=== PATIENT | male | born 1955 | race Caucasian/White ===

== ENCOUNTER 2016-10-21 12:05 | Emergency (ER) | payer OTHER, BC ==
[2016-10-21] MEDS ORDERED: Diphtheria,Pertussis(Acell),Tetanus Vaccine 0.5 ML Syringe IM ONE (12:12)
--- NOTE | 2016-10-21 12:23 | EDM.PDOC ---
ED HPI GENERAL MEDICAL PROBLEM - General Chief Complaint: General Stated Complaint: FALL OFF LADDER Time Seen by Provider: 10/21/16 12:20 Source of Information: Reports: Patient History Limitations: Reports: No Limitations - History of Present Illness INITIAL COMMENTS - FREE TEXT/NARRATIVE: History of present illness: 61-year-old male presents with acute trauma to back of head. Patient had a slip and fall from a ladder while at work. Patient sustained an abrasion to the back of his left calf and a small skin tear to his right elbow but he was concerned for the blow to his head with subsequent hematoma and some amount of bleeding. Patient denies loss of consciousness, nausea, or vomiting. Review of systems: As per history of present illness and below otherwise all systems reviewed and negative. Past medical history: As per history of present illness and as reviewed below otherwise noncontributory. Surgical history: As per history of present illness and as reviewed below otherwise noncontributory. Social history: No reported history of drug or alcohol abuse. Family history: As per history of present illness and as reviewed below otherwise noncontributory. Physical exam: HEENT: Macerated area to back of head with a approx 1.5 cm laceration,small hematoma at occipit, pupils reactive, negative for conjunctival pallor or scleral icterus, mucous membranes moist, throat clear, neck supple, nontender, trachea midline. Lungs: Clear to auscultation, breath sounds equal bilaterally, chest nontender. Heart: S1S2, regular, negative for clicks, rubs, or JVD. Abdomen: Soft, nondistended, nontender. Negative for masses or hepatosplenomegaly. Negative for costovertebral tenderness. Pelvis: Stable nontender. Genitourinary: Deferred. Rectal: Deferred. Extremities: Atraumatic, negative for cords or calf pain. Neurovascular unremarkable. Neuro: Awake, alert, oriented. Cranial nerves II through XII unremarkable. Cerebellum unremarkable. Motor and sensory unremarkable throughout. Exam nonfocal. Skin: Abraded area to calf of left leg as well as small skin tear of right forearm Scalp cleaned well with 3 lor applied patient waived lidocaine secondary to limited amount of lor. Diagnostics: [CT of head] Therapeutics: [] Impression: [Contusion, 1.5 cm laceration.] Plan: [3 lor applied, follow-up with primary care ] Definitive disposition and diagnosis as appropriate pending reevaluation and review of above. Occipital Head Pain Score (Numeric/FACES): 5 - Related Data Allergies Allergy/AdvReac Type Severity Reaction Status Date / Time No Known Allergies Allergy Verified 10/21/16 12:06 Home Meds: Home Meds Acetaminophen/oxyCODONE [Percocet 325-5 MG] 1 - 2 tab PO Q4H PRN #60 tablet [Rx] Aspirin 325 mg PO DAILY #42 tablet 11/01/14 [Rx] Docusate Sodium [Colace] 100 mg PO BID PRN #60 cap 11/01/14 [Rx] Past Medical History - Past Health History Medical/Surgical History: Denies Medical/Surgical History Cardiovascular History: Reports: None Respiratory History: Reports: None Gastrointestinal History: Reports: None Genitourinary History: Reports: None Musculoskeletal History: Reports: None Neurological History: Reports: None Psychiatric History: Reports: None Endocrine/Metabolic History: Reports: None Dermatologic History: Reports: None - Past Surgical History HEENT Surgical History: Reports: None Cardiovascular Surgical History: Reports: None Respiratory Surgical History: Reports: None GI Surgical History: Reports: Colon Male Surgical History: Reports: None Social & Family History - Tobacco Use Smoking Status *Q: Former Smoker Years of Tobacco use: 30 Used Tobacco, but Quit: Yes Month Tobacco Last Used: 72 Second Hand Smoke Exposure: No - Alcohol Use Days Per Week of Alcohol Use: 1 Number of Drinks Per Day: 1 Total Drinks Per Week: 1 - Recreational Drug Use Recreational Drug Use: No ED ROS GENERAL - Review of Systems Review Of Systems: See Below (See history of present illness) ED EXAM, GENERAL - Physical Exam Exam: See Below (See history of present illness) Course - Vital Signs Last Recorded V/S: Last Vital Signs Temp 36.4 C 10/21/16 12:07 Pulse 94 10/21/16 12:07 Resp 20 10/21/16 12:07 BP 141/81 H 10/21/16 12:07 Pulse Ox 99 10/21/16 12:07 - Orders/Labs/Meds Orders: Active Orders 24 hr Category Date Time Status Vaccines to be Administered [RC] PER UNIT ROUTINE Care 10/21/16 12:12 Active Head wo Cont [CT] Stat Exams 10/21/16 12:22 Taken Meds: Medications Discontinued Medications Generic Name Dose Route Start Last Admin Trade Name Maria Eugenia PRN Reason Stop Dose Admin Bacitracin 2 dose 10/21/16 12:27 Bacitracin Oint 1 Gm TOP 10/21/16 12:28 ONETIME ONE Diphtheria/Tetanus/Acell Pertussis 0.5 ml 10/21/16 12:12 Adacel IM 10/21/16 12:13 .ONCE ONE Departure - Departure Time of Disposition: 13:20 Disposition: Home, Self-Care 01 Condition: Good Clinical Impression: Contusion, Laceration - Discharge Information Referrals: PCP,None [Primary Care Provider] - Forms: ED Department Discharge Additional Instructions: The following information is given to patients seen in the emergency department who are being discharged to home. This information is to outline your options for follow-up care. We provide all patients seen in our emergency department with a follow-up referral. The need for follow-up, as well as the timing and circumstances, are variable depending upon the specifics of your emergency department visit. If you don't have a primary care physician on staff, we will provide you with a referral. We always advise you to contact your personal physician following an emergency department visit to inform them of the circumstance of the visit and for follow-up with them and/or the need for any referrals to a consulting specialist. The emergency department will also refer you to a specialist when appropriate. This referral assures that you have the opportunity for follow-up care with a specialist. All of these measure are taken in an effort to provide you with optimal care, which includes your follow-up. Under all circumstances we always encourage you to contact your private physician who remains a resource for coordinating your care. When calling for follow-up care, please make the office aware that this follow-up is from your recent emergency room visit. If for any reason you are refused follow-up, please contact the [facility] Emergency Department at and asked to speak to the emergency department charge nurse. Follow-up with PCP 1-2 days Return to ED as needed as discussed [facility] [address] [place] [id number] - My Orders Last 24 Hours: My Active Orders 10/21/16 12:22 Head wo Cont [CT] Stat - Assessment/Plan Last 24 Hours: My Active Orders 10/21/16 12:22 Head wo Cont [CT] Stat
[2016-10-21] MEDS ORDERED: Bacitracin Oint 1 GM U/D Packet TOP ONE (12:27)
[2016-10-21 16:10] VITALS: BP 139/78
--- NOTE | 2016-10-23 13:38 | CT ---
EXAM DATE: 10/21/16 PATIENT'S AGE: 61 Patient: MAKENZIE ESQUEDA Facility: [place], [place] Site . Site : 1955 Study: CT Head [id number] 1:05:26 PM Ordering Physician: Doctor Noel Final Report: INDICATION: fell from ladder CT HEAD WITHOUT CONTRAST TECHNIQUE: Multiple axial CT images were performed through the head without intravenous contrast administration. COMPARISON: No previous studies are currently available for comparison. FINDINGS: No acute intracranial hemorrhage is identified. No extra-axial collections are evident and there is no mass effect or midline shift. Ventricles are normal in size and configuration. Brain parenchyma appears normal with unremarkable yoon-white differentiation. Osseous structures are within normal limits and no fractures are seen. Included portions of the paranasal sinuses and mastoid air cells are normally aerated. IMPRESSION: Normal non-contrast head CT. LUIS A MORENO MD [employer] Dictated by: Sameer Moreno MD @ 10/21/2016 13:13:48 (Electronic Signature) Report Signed by Proxy. [facility]
== END 2016-10-21 13:47 | disposition home or self-care (01) ==
LOC: MW.ED 12:05
DX: S01.01XA Laceration without foreign body of scalp, initial encounter (principal); S51.811A Laceration without foreign body of right forearm, initial encounter; S80.812A Abrasion, left lower leg, initial encounter; Z87.891 Personal history of nicotine dependence; W11.XXXA Fall on and from ladder, initial encounter
CPT/HCPCS: 12001; 70450; 70450-26; 90471; 90715; 99283; 99283-25

== ENCOUNTER 2017-01-02 18:03 | Emergency (ER) | payer BC, OTHER ==
[2017-01-02] MEDS ORDERED: Benzocaine 20% Topical Spray UD MUCMEM ONE (18:14)
[2017-01-02] MEDS ORDERED: Lidocaine 2% Viscous Solution 15 ML Cup PO ONE (18:14)
[2017-01-02] MEDS ORDERED: Ketorolac 60 MG/2 ML SDV IM ONE (18:14)
--- NOTE | 2017-01-02 18:14 | EDM.PDOC ---
ED HPI GENERAL MEDICAL PROBLEM - General Chief Complaint: General Stated Complaint: TOOTH PAIN Time Seen by Provider: 01/02/17 18:12 Source of Information: Reports: Patient History Limitations: Reports: No Limitations - History of Present Illness INITIAL COMMENTS - FREE TEXT/NARRATIVE: HISTORY AND PHYSICAL: []61-year-old male presents with tooth pain #20 History of Present Illness: []Patient was at the dentist had cavities filled 2 and half hours ago when the Novocain wore off he presents here with pain Review of Systems: As per history of present illness and below otherwise all systems reviewed and negative. Past medical history: As per history of present illness and as reviewed below otherwise noncontributory. Surgical history: As per history of present illness and as reviewed below otherwise noncontributory. Social history: No reported history of drug or alcohol abuse. Family history: As per history of present illness and as reviewed below otherwise noncontributory. Physical exam: Alert gentleman who does look to be in pain HEENT: Atraumatic, normocehpalic, pupils reactive, negative for conjunctival pallor or scleral icterus, mucous membranes moist, throat clear, neck supple, nontender, trachea midline. Lungs: Clear to auscultation, breath sounds equal bilaterally, chest non tender. Heart: S1S2, regular, negative for clicks, rubs, or JVD. Abdomen: Soft, nondistended, nontender. Negative for masses or hepatossplenmegaly. Negative for costovertebral tenderness. Pelvis: Stable nontender. Genitourinary: Deferred. Rectal: Deferred Extremities: Atraumatic, negative for cords or calf pain. Neurovascular unremarkable. Neuro: Awake, alert, oriented. Cranial nerves II through XII unremarkable. Cerebellum unremarkable. Motor and sensory unremarkable throughout. Exam nonfocal. Diagnostics: [] Therapeutics: [Toradol 60 IM, dental balls ] Impression: [Dental pain] Plan: []Home Follow up with your dentist tomorrow Definitive disposition and diagnosis as appropriate pending reevaluation and review of above. Onset: Today, Sudden Location: Reports: Face - Related Data Allergies Allergy/AdvReac Type Severity Reaction Status Date / Time No Known Allergies Allergy Verified 01/02/17 18:13 Home Meds: Home Meds Acetaminophen/oxyCODONE [Percocet 325-5 MG] 1 - 2 tab PO Q4H PRN #60 tablet [Rx] Past Medical History - Past Health History Medical/Surgical History: Denies Medical/Surgical History Cardiovascular History: Reports: None Respiratory History: Reports: None Gastrointestinal History: Reports: None Genitourinary History: Reports: None Musculoskeletal History: Reports: None Neurological History: Reports: None Psychiatric History: Reports: None Endocrine/Metabolic History: Reports: None Dermatologic History: Reports: None - Past Surgical History HEENT Surgical History: Reports: None Cardiovascular Surgical History: Reports: None Respiratory Surgical History: Reports: None GI Surgical History: Reports: Colon Male Surgical History: Reports: None Social & Family History - Tobacco Use Smoking Status *Q: Former Smoker Years of Tobacco use: 30 Used Tobacco, but Quit: Yes Month Tobacco Last Used: 73 Second Hand Smoke Exposure: No - Alcohol Use Days Per Week of Alcohol Use: 1 Number of Drinks Per Day: 1 Total Drinks Per Week: 1 - Recreational Drug Use Recreational Drug Use: No ED ROS GENERAL - Review of Systems Review Of Systems: ROS reveals no pertinent complaints other than HPI. ED EXAM, GENERAL - Physical Exam Exam: See Below (See dictation) Course - Vital Signs Last Recorded V/S: Last Vital Signs Temp 36.3 C 01/02/17 18:09 Pulse 81 01/02/17 18:09 Resp 22 H 01/02/17 18:09 BP 163/89 H 01/02/17 18:09 Pulse Ox 98 01/02/17 18:09 - Orders/Labs/Meds Orders: Active Orders 24 hr Category Date Time Status Benzocaine [Hurricaine One 20%] Med 01/02/17 18:14 Once 2 each MUCMEM ONETIME ONE Ketorolac [Toradol] Med 01/02/17 18:14 Once 60 mg IM ONETIME ONE Lidocaine 2% [Xylocaine 2% Viscous] Med 01/02/17 18:14 Once 15 ml PO ONETIME ONE Medication Orders Benzocaine (Hurricaine One 20%) 2 each MUCMEM ONETIME ONE Stop: 01/02/17 18:15 Lidocaine HCl (Xylocaine 2% Viscous) 15 ml PO ONETIME ONE Stop: 01/02/17 18:15 Meds: Medications Generic Name Dose Route Start Last Admin Trade Name Freq PRN Reason Stop Dose Admin Benzocaine 2 each 01/02/17 18:14 Hurricaine One 20% MUCMEM 01/02/17 18:15 ONETIME ONE Lidocaine HCl 15 ml 01/02/17 18:14 Xylocaine 2% Viscous PO 01/02/17 18:15 ONETIME ONE Departure - Departure Time of Disposition: 18:14 Disposition: Home, Self-Care 01 Condition: Good Clinical Impression: Pain, dental - Discharge Information Referrals: Jose Manuel Camara MD [Primary Care Provider] - Forms: ED Department Discharge Additional Instructions: The following information is given to patients seen in the emergency department who are being discharged to home. This information is to outline your options for follow-up care. We provide all patients seen in our emergency department with a follow-up referral. The need for follow-up, as well as the timing and circumstances, are variable depending upon the specifics of your emergency department visit. If you don't have a primary care physician on staff, we will provide you with a referral. We always advise you to contact your personal physician following an emergency department visit to inform them of the circumstance of the visit and for follow-up with them and/or the need for any referrals to a consulting specialist. The emergency department will also refer you to a specialist when appropriate. This referral assures that you have the opportunity for followup care with a specialist. All of these measure are taken in an effort to provide you with optimal care, which includes your followup. Under all circumstances we always encourage you to contact your private physician who remains a resource for coordinating your care. When calling for followup care, please make the office aware that this follow-up is from your recent emergency room visit. If for any reason you are refused follow-up, please contact the [facility] emergency department at and asked to speak to the emergency department charge nurse. This follow-up with your primary dentist tomorrow - My Orders Last 24 Hours: My Active Orders 01/02/17 18:14 Benzocaine [Hurricaine One 20%] 2 each MUCMEM ONETIME ONE Ketorolac [Toradol] 60 mg IM ONETIME ONE Lidocaine 2% [Xylocaine 2% Viscous] 15 ml PO ONETIME ONE - Assessment/Plan Last 24 Hours: My Active Orders 01/02/17 18:14 Benzocaine [Hurricaine One 20%] 2 each MUCMEM ONETIME ONE Ketorolac [Toradol] 60 mg IM ONETIME ONE Lidocaine 2% [Xylocaine 2% Viscous] 15 ml PO ONETIME ONE
[2017-01-02 18:57] VITALS: BP 127/79
== END 2017-01-02 18:53 | disposition home or self-care (01) ==
LOC: MW.ED 18:03
DX: K08.89 Other specified disorders of teeth and supporting structures (principal); Z87.891 Personal history of nicotine dependence
CPT/HCPCS: 96372; 99282; A9270; J1885; 99283

== ENCOUNTER 2017-02-16 01:18 | Emergency (ER) | payer BC ==
--- NOTE | 2017-02-16 01:25 | EDM.PDOC ---
ED HPI GENERAL MEDICAL PROBLEM - General Chief Complaint: Upper Extremity Injury/Pain Stated Complaint: DISLOCATE RT SHOULDER Time Seen by Provider: 02/16/17 01:25 Source of Information: Reports: Patient - History of Present Illness INITIAL COMMENTS - FREE TEXT/NARRATIVE: HISTORY AND PHYSICAL: History of present illness: [Patient presents with complaint of shoulder dislocation He was fishing tonight lifting the middle directed into the back of a pickup and feels that her shoulder dislocated he had sharp 8 out of 10 pain with this movement no other injury no fever nausea vomiting chills sweats no chest pain shortness breath headache dizziness palpitation about a urine symptoms ] Review of systems: As per history of present illness and below otherwise all systems reviewed and negative. Past medical history: As per history of present illness and as reviewed below otherwise noncontributory. Surgical history: As per history of present illness and as reviewed below otherwise noncontributory. Social history: No reported history of drug or alcohol abuse. Family history: As per history of present illness and as reviewed below otherwise noncontributory. Physical exam: HEENT: Atraumatic, normocephalic, pupils reactive, negative for conjunctival pallor or scleral icterus, mucous membranes moist, throat clear, neck supple, nontender, trachea midline. Lungs: Clear to auscultation, breath sounds equal bilaterally, chest nontender. Heart: S1S2, regular, negative for clicks, rubs, or JVD. Abdomen: Soft, nondistended, nontender. Negative for masses or hepatosplenomegaly. Negative for costovertebral tenderness. Pelvis: Stable nontender. Genitourinary: Deferred. Rectal: Deferred. Extremities: Atraumatic, negative for cords or calf pain. Neurovascular unremarkable. Neuro: Awake, alert, oriented. Cranial nerves II through XII unremarkable. Cerebellum unremarkable. Motor and sensory unremarkable throughout. Exam nonfocal. Right shoulder no pain with movement of the neck elbow and wrist unaffected limited shoulder exam due to pain very limited movement with passive motion due to pain, tender over ac joint, suspicious for rotator cuff injury there is very minimal passive forward extension produces pain. Entire limb is neurovascularly intact Diagnostics: [Right shoulder complete ] Therapeutics: [Rest ice ibuprofen [place] Sling for comfort Follow-up with orthopedist ] Impression: [Right shoulder pain] Limited exam due to pain Definitive disposition and diagnosis as appropriate pending reevaluation and review of above. Right Shoulder Pain Score (Numeric/FACES): 10 - Related Data Allergies Allergy/AdvReac Type Severity Reaction Status Date / Time No Known Allergies Allergy Verified 02/16/17 01:29 Home Meds: Home Meds . [No Known Home Meds] 02/16/17 [History] Past Medical History - Past Health History Medical/Surgical History: Denies Medical/Surgical History Cardiovascular History: Reports: None Respiratory History: Reports: None Gastrointestinal History: Reports: None Genitourinary History: Reports: None Musculoskeletal History: Reports: None Neurological History: Reports: None Psychiatric History: Reports: None Endocrine/Metabolic History: Reports: None Dermatologic History: Reports: None - Past Surgical History HEENT Surgical History: Reports: None Cardiovascular Surgical History: Reports: None Respiratory Surgical History: Reports: None GI Surgical History: Reports: Colon Male Surgical History: Reports: None Social & Family History - Family History Family Medical History: Noncontributory - Tobacco Use Smoking Status *Q: Former Smoker Years of Tobacco use: 30 Used Tobacco, but Quit: Yes Month Tobacco Last Used: 73 Second Hand Smoke Exposure: No - Caffeine Use Caffeine Use: Reports: Coffee - Alcohol Use Days Per Week of Alcohol Use: 1 Number of Drinks Per Day: 1 Total Drinks Per Week: 1 - Recreational Drug Use Recreational Drug Use: No Review of Systems - Review of Systems Review Of Systems: See Below ED EXAM, GENERAL - Physical Exam Exam: See Below Course - Vital Signs Last Recorded V/S: Last Vital Signs Temp 37.3 C 02/16/17 01:25 Pulse 89 02/16/17 01:25 Resp 19 02/16/17 01:25 BP 141/74 H 02/16/17 01:25 Pulse Ox 94 L 02/16/17 01:25 - Orders/Labs/Meds Orders: Active Orders 24 hr Category Date Time Status Shoulder Comp Rt [CR] Stat Exams 02/16/17 01:24 Taken Departure - Departure Time of Disposition: 02:07 Disposition: Home, Self-Care 01 Condition: Good Clinical Impression: Shoulder pain - Discharge Information Referrals: Jose Manuel Camara MD [Primary Care Provider] - Forms: ED Department Discharge Additional Instructions: Rest Ice 20 minute intervals 3 times daily 7-10 days Ibuprofen 400 mg 3 times daily 7-10 days Medication as prescribed Follow-up with orthopedist, call phone number below for appropriate appointment scheduling [facility] [address], [address] [place] [address] my orthopedic The following information is given to patients seen in the emergency department who are being discharged to home. This information is to outline your options for follow-up care. We provide all patients seen in our emergency department with a follow-up referral. The need for follow-up, as well as the timing and circumstances, are variable depending upon the specifics of your emergency department visit. If you don't have a primary care physician on staff, we will provide you with a referral. We always advise you to contact your personal physician following an emergency department visit to inform them of the circumstance of the visit and for follow-up with them and/or the need for any referrals to a consulting specialist. The emergency department will also refer you to a specialist when appropriate. This referral assures that you have the opportunity for follow-up care with a specialist. All of these measure are taken in an effort to provide you with optimal care, which includes your follow-up. Under all circumstances we always encourage you to contact your private physician who remains a resource for coordinating your care. When calling for follow-up care, please make the office aware that this follow-up is from your recent emergency room visit. If for any reason you are refused follow-up, please contact the [facility] emergency department at and asked to speak to the emergency department charge nurse. - My Orders Last 24 Hours: My Active Orders 02/16/17 01:24 Shoulder Comp Rt [CR] Stat - Assessment/Plan Last 24 Hours: My Active Orders 02/16/17 01:24 Shoulder Comp Rt [CR] Stat
[2017-02-16 01:28] VITALS: BP 141/74
--- NOTE | 2017-02-17 14:45 | CR ---
EXAM DATE: 02/16/17 PATIENT'S AGE: 61 Patient: MAKENZIE ESQUEDA Facility: [place], [place] Site . Site : 1955 Study: XRay Shoulder Right [id number]/[id number] 1:54:47 AM Ordering Physician: Doctor Noel Final Report: INDICATION: HYPER EXTENDED SHOULDER TODAY PAIN WORSENING INTO THE EVENING TECHNIQUE: Three views of the right shoulder COMPARISON: None FINDINGS: Bones: No fractures or bone lesions. Joint spaces: Unremarkable. Soft tissues: Unremarkable. IMPRESSION: No acute bony abnormality Dictated by Hipolito Pedersen MD @ 02/16/2017 1:55:40 AM Dictated by: Hipolito Pedersen MD @ 02/16/2017 01:56:07 (Electronic Signature) Report Signed by Proxy. [facility]ITAL[facility]up[facility]
== END 2017-02-16 02:20 | disposition home or self-care (01) ==
LOC: MW.ED 01:18
DX: M25.511 Pain in right shoulder (principal); Z87.891 Personal history of nicotine dependence; X50.1XXA Overexertion from prolonged static or awkward postures, initial encounter
CPT/HCPCS: 73030-26-RT; 73030-RT; 99283

== ENCOUNTER 2017-03-24 20:08 | Emergency (ER) | payer BC ==
[2017-03-24 20:24] VITALS: BP 117/70
--- NOTE | 2017-03-24 20:44 | EDM.PDOC ---
ED HPI GENERAL MEDICAL PROBLEM - General Chief Complaint: ENT Problem Stated Complaint: PT HAS SORE THROAT Time Seen by Provider: 03/24/17 20:37 Source of Information: Reports: Patient History Limitations: Reports: No Limitations - History of Present Illness INITIAL COMMENTS - FREE TEXT/NARRATIVE: HISTORY AND PHYSICAL: History of present illness: Patient is a 61-year-old male who presents to the emergency room today with complaints of a sore throat that started this morning. He reports that the pain is increased with swallowing or when touching his left side of his neck. He is concerned that he has strep throat today would like to be treated with antibiotics. He denies any fever, chills, shortness of breath, chest pain, abdominal pain, nausea, vomiting or diarrhea. Denies any cough. Has not received the [id number] influenza vaccine. Review of systems: As per history of present illness and below otherwise all systems reviewed and negative. Past medical history: As per history of present illness and as reviewed below otherwise noncontributory. Surgical history: As per history of present illness and as reviewed below otherwise noncontributory. Social history: No reported history of drug or alcohol abuse. Family history: As per history of present illness and as reviewed below otherwise noncontributory. Physical exam: Gen.: Well-developed and well-nourished 7-year-old male. Appears in no acute distress and is nontoxic appearing. Alert and oriented. HEENT: Atraumatic, normocephalic, pupils reactive, negative for conjunctival pallor or scleral icterus, mucous membranes moist, throat clear, neck supple, tenderness with palpation of the anterior cervical chain on the left, trachea midline. No nuchal rigidity. Lungs: Clear to auscultation, breath sounds equal bilaterally, chest nontender. Breathes easy and even. Heart: S1S2, regular rate and rhythm. Abdomen: Soft, nondistended, nontender. Negative for masses or hepatosplenomegaly. Negative for costovertebral tenderness. Pelvis: Stable nontender. Genitourinary: Deferred. Rectal: Deferred. Extremities: Atraumatic, negative for cords or calf pain. Neurovascular unremarkable. Neuro: Awake, alert, oriented. Cranial nerves II through XII unremarkable. Cerebellum unremarkable. Motor and sensory unremarkable throughout. Exam nonfocal. Diagnostics: Strep screening Therapeutics: [] Impression: Sore throat Plan: 1. Your strep screen was negative today. Please do warm salt water gargles 2-3 times daily for the next 3 days. 2. A prescription for Phenergan with codeine has been prescribed for you he may take 10 mL's every 4-6 hours as needed for throat pain. Please be aware that this medication may cause drowsiness so do not take it while needing to be functioning at work or while driving, as this is a narcotic. You may use over- the-counter lozenges for cough medication in the junction to your prescription today. 3. Follow up with her primary caregiver in the next 1-2 days. Return to the ED as needed and as discussed. Definitive disposition and diagnosis as appropriate pending reevaluation and review of above. Onset: Today Duration: Hour(s): Location: Reports: Neck throat Pain Score (Numeric/FACES): 4 - Related Data Allergies Allergy/AdvReac Type Severity Reaction Status Date / Time No Known Allergies Allergy Verified 02/16/17 01:29 Home Meds: Home Meds . [No Known Home Meds] 02/16/17 [History] Past Medical History - Past Health History Medical/Surgical History: Denies Medical/Surgical History Cardiovascular History: Reports: None Respiratory History: Reports: None Gastrointestinal History: Reports: None Other Gastrointestinal History: hole in colon Genitourinary History: Reports: None Musculoskeletal History: Reports: None Neurological History: Reports: None Psychiatric History: Reports: None Endocrine/Metabolic History: Reports: None Dermatologic History: Reports: None - Past Surgical History HEENT Surgical History: Reports: None Cardiovascular Surgical History: Reports: None Respiratory Surgical History: Reports: None GI Surgical History: Reports: Colon Male Surgical History: Reports: None Social & Family History - Family History Family Medical History: Noncontributory - Tobacco Use Smoking Status *Q: Never Smoker Years of Tobacco use: 30 Used Tobacco, but Quit: Yes Month Tobacco Last Used: 72 Second Hand Smoke Exposure: No - Caffeine Use Caffeine Use: Reports: Coffee - Alcohol Use Days Per Week of Alcohol Use: 1 Number of Drinks Per Day: 1 Total Drinks Per Week: 1 - Recreational Drug Use Recreational Drug Use: No ED ROS ENT - Review of Systems Review Of Systems: See Below ED EXAM, ENT - Physical Exam Exam: See Below (See dictation) Course - Vital Signs Last Recorded V/S: Last Vital Signs Temp 97 F 03/24/17 20:21 Pulse 63 03/24/17 20:21 Resp 18 03/24/17 20:21 BP 117/70 03/24/17 20:21 Pulse Ox 97 03/24/17 20:21 - Orders/Labs/Meds Orders: Active Orders 24 hr Category Date Time Status CULTURE STREP A CONFIRMATION [RM] Stat Lab 03/24/17 21:00 Results STREP SCRN A RAPID W CULT CONF [RM] Stat Lab 03/24/17 21:00 Results Departure - Departure Time of Disposition: 21:38 Disposition: Home, Self-Care 01 Clinical Impression: Sore throat - Discharge Information Referrals: PCP,None [Primary Care Provider] - Forms: ED Department Discharge Additional Instructions: My general discharge The following information is given to patients seen in the emergency department who are being discharged to home. This information is to outline your options for follow-up care. We provide all patients seen in our emergency department with a follow-up referral. The need for follow-up, as well as the timing and circumstances, are variable depending upon the specifics of your emergency department visit. If you don't have a primary care physician on staff, we will provide you with a referral. We always advise you to contact your personal physician following an emergency department visit to inform them of the circumstance of the visit and for follow-up with them and/or the need for any referrals to a consulting specialist. The emergency department will also refer you to a specialist when appropriate. This referral assures that you have the opportunity for follow-up care with a specialist. All of these measure are taken in an effort to provide you with optimal care, which includes your follow-up. Under all circumstances we always encourage you to contact your private physician who remains a resource for coordinating your care. When calling for follow-up care, please make the office aware that this follow-up is from your recent emergency room visit. If for any reason you are refused follow-up, please contact the [facility] Emergency Department at and asked to speak to the emergency department charge nurse. [facility] [address] [place] [phone] 1. Your strep screen was negative today. Please do warm salt water gargles 2-3 times daily for the next 3 days. 2. A prescription for Phenergan with codeine has been prescribed for you he may take 10 mL's every 4-6 hours as needed for throat pain. Please be aware that this medication may cause drowsiness so do not take it while needing to be functioning at work or while driving, as this is a narcotic. You may use over- the-counter lozenges for cough medication in the junction to your prescription today. 3. Follow up with her primary caregiver in the next 1-2 days. Return to the ED as needed and as discussed. - My Orders Last 24 Hours: My Active Orders 03/24/17 21:00 CULTURE STREP A CONFIRMATION [RM] Stat STREP SCRN A RAPID W CULT CONF [] Stat - Assessment/Plan Last 24 Hours: My Active Orders 03/24/17 21:00 CULTURE STREP A CONFIRMATION [RM] Stat STREP SCRN A RAPID W CULT CONF [] Stat
== END 2017-03-24 22:10 | disposition home or self-care (01) ==
LOC: MW.ED 20:08
DX: J02.9 Acute pharyngitis, unspecified (principal)
CPT/HCPCS: 87081; 87880; 99282; 99283

== ENCOUNTER 2017-06-19 00:01 | Emergency (ER) | payer BC ==
--- NOTE | 2017-06-19 00:17 | EDM.PDOC ---
ED HPI GENERAL MEDICAL PROBLEM - General Chief Complaint: Upper Extremity Injury/Pain Stated Complaint: L ARM PAIN Time Seen by Provider: 06/19/17 00:10 - History of Present Illness INITIAL COMMENTS - FREE TEXT/NARRATIVE: HISTORY AND PHYSICAL: History of present illness: Patient 62-year-old white male presents with concern of left wrist pain is no associated trauma he denies any fever chills nausea vomiting denies history of gout or other concern. Review of systems: As per history of present illness and below otherwise all systems reviewed and negative. Past medical history: As per history of present illness and as reviewed below otherwise noncontributory. Surgical history: As per history of present illness and as reviewed below otherwise noncontributory. Social history: No reported history of drug or alcohol abuse. Family history: As per history of present illness and as reviewed below otherwise noncontributory. Physical exam: HEENT: Atraumatic, normocephalic, pupils reactive, negative for conjunctival pallor or scleral icterus, mucous membranes moist, throat clear, neck supple, nontender, trachea midline. Lungs: Clear to auscultation, breath sounds equal bilaterally, chest nontender. Heart: S1S2, regular, negative for clicks, rubs, or JVD. Abdomen: Soft, nondistended, nontender. Negative for masses or hepatosplenomegaly. Negative for costovertebral tenderness. Pelvis: Stable nontender. Genitourinary: Deferred. Rectal: Deferred. Extremities: Patient has tenderness that is nonlocalized of the left wrist there is no erythema and no warmth CMS neurovascular exam are unremarkable Neuro: Awake, alert, oriented. Cranial nerves II through XII unremarkable. Cerebellum unremarkable. Motor and sensory unremarkable throughout. Exam nonfocal. Diagnostics: X-ray left wrist Therapeutics: Velcro splint Impression: # 1 left wrist pain etiology to be determined Definitive disposition and diagnosis as appropriate pending reevaluation and review of above. - Related Data Allergies Allergy/AdvReac Type Severity Reaction Status Date / Time No Known Allergies Allergy Verified 06/19/17 00:12 Home Meds: Home Meds . [No Known Home Meds] 02/16/17 [History] Past Medical History - Past Health History Medical/Surgical History: Denies Medical/Surgical History Cardiovascular History: Reports: None Respiratory History: Reports: None Gastrointestinal History: Reports: None Other Gastrointestinal History: hole in colon Genitourinary History: Reports: None Musculoskeletal History: Reports: None Neurological History: Reports: None Psychiatric History: Reports: None Endocrine/Metabolic History: Reports: None Dermatologic History: Reports: None - Past Surgical History HEENT Surgical History: Reports: None Cardiovascular Surgical History: Reports: None Respiratory Surgical History: Reports: None GI Surgical History: Reports: Colon Male Surgical History: Reports: None Social & Family History - Family History Family Medical History: Noncontributory - Tobacco Use Smoking Status *Q: Never Smoker Years of Tobacco use: 30 Used Tobacco, but Quit: Yes Month Tobacco Last Used: 72 Second Hand Smoke Exposure: No - Caffeine Use Caffeine Use: Reports: Coffee - Alcohol Use Days Per Week of Alcohol Use: 1 Number of Drinks Per Day: 1 Total Drinks Per Week: 1 - Recreational Drug Use Recreational Drug Use: No Review of Systems - Review of Systems Review Of Systems: ROS reveals no pertinent complaints other than HPI. ED EXAM, GENERAL - Physical Exam Exam: See Below (See dictation) Course - Vital Signs Last Recorded V/S: Last Vital Signs Temp 36.7 C 06/19/17 00:45 Pulse 88 06/19/17 00:45 Resp 17 06/19/17 00:45 BP 127/88 06/19/17 00:45 Pulse Ox 98 06/19/17 00:45 - Orders/Labs/Meds Orders: Active Orders 24 hr Category Date Time Status Wrist 2V Lt [CR] Stat Exams 06/19/17 00:09 Taken Departure - Departure Time of Disposition: 00:46 Disposition: Home, Self-Care 01 Condition: Good Clinical Impression: Wrist pain - Discharge Information Instructions: Wrist Pain, Adult, [id number] Referrals: Chastity Toro MD [Physician] - Jose Manuel Camara MD [Primary Care Provider] - Forms: ED Department Discharge Care Plan Goals: ffup with hand hand specialist clinic - My Orders Last 24 Hours: My Active Orders 06/19/17 00:09 Wrist 2V Lt [CR] Stat - Assessment/Plan Last 24 Hours: My Active Orders 06/19/17 00:09 Wrist 2V Lt [CR] Stat
[2017-06-19 00:46] VITALS: BP 127/88
--- NOTE | 2017-06-19 11:22 | CR ---
EXAM DATE: 06/19/17 PATIENT'S AGE: 62 Patient: MAKENZIE ESQUEDA Facility: [place], [place] Site . Site : [id number] Study: XRay Extremity [id number]/1/2018 12:28:08 AM Ordering Physician: Doctor Noel Final Report: Indication: Severe wrist pain without acute injury Technique: Two views left wrist Comparison: None Findings/impression: : The cortex of the lateral base of the 5th metacarpal and the lateral cortex of the hamate bone are poorly defined. This could represent artifact versus bony erosion. Recommend oblique views for further evaluation. Remainder of the osseous structures are intact. Dictated by Anna Marie Norris MD @ Jun 19 2017 12:28AM (Electronic Signature) Report Signed by Proxy. NINI
== END 2017-06-19 00:47 | disposition home or self-care (01) ==
LOC: MW.ED 00:01
DX: M25.532 Pain in left wrist (principal); Z87.891 Personal history of nicotine dependence
CPT/HCPCS: 73100; 99283; L3908

== ENCOUNTER 2018-05-14 02:57 | Emergency (ER) | payer BC ==
--- NOTE | 2018-05-14 03:00 | EDM.PDOC ---
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 His main concern concern this morning/tonight his right shoulder pain 8 out of 10 worsened by movement denies injury or trauma no fever nausea vomiting chills sweats no known nidus for pain no redness or warmth of the joint no bruising or open lesion tire limb is neurovascularly intact very limited exam is patient will not let me move the shoulder due to pain He also has low back pain that has been present for over a month he is seeing a chiropractor every couple of weeks for this, is currently at baseline he also complains of pain involving the right side of his neck which seems to involve the SCM and trapezius distribution but has full range of motion of the neck no vertebral point tenderness No fever nausea vomiting chills sweats no chest pain shortness breath headache dizziness palpitation no bowel or urine symptoms Review of systems: As per history of present illness and below otherwise all systems reviewed and negative. Past medical history: As per history of present illness and as reviewed below otherwise noncontributory. Surgical history: As per history of present illness and as reviewed below otherwise noncontributory. Social history: No reported history of drug or alcohol abuse. Family history: As per history of present illness and as reviewed below otherwise noncontributory. Physical exam: HEENT: Atraumatic, normocephalic, pupils reactive, negative for conjunctival pallor or scleral icterus, mucous membranes moist, throat clear, neck supple, nontender, trachea midline. Lungs: Clear to auscultation, breath sounds equal bilaterally, chest nontender. Heart: S1S2, regular, negative for clicks, rubs, or JVD. Abdomen: Soft, nondistended, nontender. Negative for masses or hepatosplenomegaly. Negative for costovertebral tenderness. Pelvis: Stable nontender. Genitourinary: Deferred. Rectal: Deferred. Extremities: Atraumatic, negative for cords or calf pain. Neurovascular unremarkable. Neuro: Awake, alert, oriented. Cranial nerves II through XII unremarkable. Cerebellum unremarkable. Motor and sensory unremarkable throughout. Exam nonfocal. Skeletal skeletal exam as per history of present illness otherwise unremarkable Diagnostics: [] right shoulder complete Therapeutics: [] Toradol 60 IM Cataflam Flexeril Impression: [] right shoulder pain/injury -Not rule out rotator cuff injury or etc. due to very limited exam Muscle spasm-lumbar paraspinous and right trapezius distribution Definitive disposition and diagnosis as appropriate pending reevaluation and review of above. Neck Pain Score (Numeric/FACES): 8 - Related Data Allergies Allergy/AdvReac Type Severity Reaction Status Date / Time No Known Allergies Allergy Verified 05/14/18 03:12 Home Meds: Home Meds . [No Known Home Meds] 02/16/17 [History] Past Medical History - Past Health History Medical/Surgical History: Denies Medical/Surgical History HEENT History: Reports: None Cardiovascular History: Reports: None Respiratory History: Reports: None Gastrointestinal History: Reports: None Other Gastrointestinal History: hole in colon Genitourinary History: Reports: None Musculoskeletal History: Reports: None Neurological History: Reports: None Psychiatric History: Reports: None Endocrine/Metabolic History: Reports: None Hematologic History: Reports: None Immunologic History: Reports: None Oncologic (Cancer) History: Reports: None Dermatologic History: Reports: None - Infectious Disease History Infectious Disease History: Reports: None - Past Surgical History HEENT Surgical History: Reports: None Cardiovascular Surgical History: Reports: None Respiratory Surgical History: Reports: None GI Surgical History: Reports: Colon Male Surgical History: Reports: None Social & Family History - Family History Family Medical History: Noncontributory - Caffeine Use Caffeine Use: Reports: Coffee ED ROS GENERAL - Review of Systems Review Of Systems: See Below ED EXAM, GENERAL - Physical Exam Exam: See Below Course - Vital Signs Last Recorded V/S: Last Vital Signs Temp 97.5 F 05/14/18 03:20 Pulse 76 05/14/18 03:20 Resp 18 05/14/18 03:20 BP 127/71 05/14/18 03:20 Pulse Ox 99 05/14/18 03:20 - Orders/Labs/Meds Meds: Medications Discontinued Medications Generic Name Dose Route Start Last Admin Trade Name Freq PRN Reason Stop Dose Admin Ketorolac Tromethamine 60 mg 05/14/18 03:31 05/14/18 03:38 Toradol IM 05/14/18 03:32 60 mg ONETIME ONE Administration Departure - Departure Time of Disposition: 04:32 Disposition: Home, Self-Care 01 Condition: Good Clinical Impression: Right shoulder pain, Muscle spasm - Discharge Information Referrals: Jose Manuel Camara MD [Primary Care Provider] - Additional Instructions: Medication as prescribed Return if symptoms persist or worsen Follow-up with orthopedist, call phone number below to schedule appropriate follow-upl [facility] [address] [place] [address], [address] [place] [address] orthopedic [facility] [address], [place] [address] The following information is given to patients seen in the emergency department who are being discharged to home. This information is to outline your options for follow-up care. We provide all patients seen in our emergency department with a follow-up referral. The need for follow-up, as well as the timing and circumstances, are variable depending upon the specifics of your emergency department visit. If you don't have a primary care physician on staff, we will provide you with a referral. We always advise you to contact your personal physician following an emergency department visit to inform them of the circumstance of the visit and for follow-up with them and/or the need for any referrals to a consulting specialist. The emergency department will also refer you to a specialist when appropriate. This referral assures that you have the opportunity for follow-up care with a specialist. All of these measure are taken in an effort to provide you with optimal care, which includes your follow-up. Under all circumstances we always encourage you to contact your private physician who remains a resource for coordinating your care. When calling for follow-up care, please make the office aware that this follow-up is from your recent emergency room visit. If for any reason you are refused follow-up, please contact the [facility] emergency department at and asked to speak to the emergency department charge nurse.
[2018-05-14 03:23] VITALS: BP 127/71
[2018-05-14] MEDS ORDERED: Ketorolac 60 MG/2 ML SDV IM ONE (03:31)
--- NOTE | 2018-05-14 04:15 | CR ---
INDICATION: Right shoulder pain, no history trauma TECHNIQUE: Three views right shoulder COMPARISON: None FINDINGS: Bones: Alignment is normal. No fractures or bone lesions. Joint spaces: Narrowing of the AC joint. Soft tissues: Unremarkable. IMPRESSION: Narrowing of the AC joint otherwise unremarkable right shoulder. Dictated by Asher Prado MD @ 05/14/2018 4:13:16 AM Dictated by: Asher Prado MD @ 05/14/2018 04:13:21 (Electronically Signed)
== END 2018-05-14 04:43 | disposition home or self-care (01) ==
LOC: MW.ED 02:57
DX: M62.830 Muscle spasm of back (principal); M25.511 Pain in right shoulder
CPT/HCPCS: 73030; 96372; 99283; J1885

== ENCOUNTER 2022-04-05 06:25 | Day surgery (SDC) | payer BC ==
[2022-04-05] MEDS ORDERED: Lactated Ringers 1,000 ML IV SCH ×2 (07:00→08:30)
[2022-04-05] MEDS ORDERED: Propofol 200 MG/20 ML SDV ONE (07:35)
[2022-04-05 08:30] VITALS: PULSE 73
[2022-04-05 11:43] VITALS: BP 99/61
== END 2022-04-05 08:45 | disposition home or self-care (01) ==
LOC: MW.SDS 06:25
PROVIDERS: ATTEND Surgery
DX: Z12.11 Encounter for screening for malignant neoplasm of colon (principal); K57.30 Diverticulosis of large intestine without perforation or abscess without bleeding; Z86.010 Personal history of colon polyps; Z80.0 Family history of malignant neoplasm of digestive organs; Z87.891 Personal history of nicotine dependence; Z88.6 Allergy status to analgesic agent; Z98.890 Other specified postprocedural states
CPT/HCPCS: 45378; J2704; J7120

== ENCOUNTER 2022-07-16 06:29 | Emergency (ER) | payer BC ==
[2022-07-16] MEDS ORDERED: Sodium Chloride 0.9% 2.5 ML Syringe FLUSH PRN (06:57)
[2022-07-16] MEDS ORDERED: Sodium Chloride 0.9% 1,000 ML IV ONE (06:57)
[2022-07-16] MEDS ORDERED: Ondansetron 4 MG/2 ML SDV IVPUSH ONE (06:57)
[2022-07-16] MEDS ORDERED: Sodium Chloride 0.9% 10 ML Syringe FLUSH PRN (06:57)
[2022-07-16] MEDS ORDERED: Ketorolac 30 MG/ML SDV IVPUSH ONE (06:57)
[2022-07-16 07:17] LABS: CARBON DIOXIDE,CO2 28.8 mmol/L (21.0-32.0); POTASSIUM,K 4.2 mmol/L (3.5-5.1)
[2022-07-16 09:20] VITALS: BP 125/69; PULSE 67
== END 2022-07-16 09:18 | disposition home or self-care (01) ==
LOC: MW.ED 06:29
DX: N13.2 Hydronephrosis with renal and ureteral calculous obstruction (principal); Z88.5 Allergy status to narcotic agent; Z79.899 Other long term (current) drug therapy
CPT/HCPCS: 36415; 74176; 80053; 85025; 96361; 96374; 96375; 99284; J1885; J2405; J3490; J7030

== ENCOUNTER 2023-02-11 06:46 | Emergency (ER) | payer BC ==
[2023-02-11] MEDS ORDERED: Ondansetron 4 MG/2 ML SDV IVPUSH ONE (07:06)
[2023-02-11] MEDS ORDERED: Sodium Chloride 0.9% 2.5 ML Syringe FLUSH PRN (07:06)
[2023-02-11] MEDS ORDERED: fentaNYL 50 MCG/ML SDV IVPUSH ONE (07:06)
[2023-02-11] MEDS ORDERED: Sodium Chloride 0.9% 10 ML Syringe FLUSH PRN (07:06)
[2023-02-11 07:24] LABS: BASOPHILS ABSOLUTE AUTO 0.04 K/uL (0.00-0.20); BASOPHILS PERCENT AUTO 0.5 % (0.0-1.0); EOSINOPHILS ABSOLUTE AUTO 0.08 K/uL (0.00-0.45); EOSINOPHILS PERCENT AUTO 1.1 % (0.0-6.0); HEMATOCRIT 42.8 % (42.0-52.0); HEMOGLOBIN 14.8 g/dL (14.0-18.0); IMMATURE GRAN ABSOLUTE AUTO 0.01 K/uL (0.00-0.05); IMMATURE GRAN PERCENT AUTO 0.1 % (0.0-0.4); LYMPHOCYTES ABSOLUTE AUTO 1.52 K/uL (1.00-4.80); LYMPHOCYTES PERCENT AUTO 20.9 % (24.0-44.0); MEAN CORPUSCULAR HEMOGLOBIN 32.2 pg (28.0-32.0); MEAN CORPUSCULAR HGB CONC 34.6 g/dL (32.0-36.0); MEAN CORPUSCULAR VOLUME 93.2 fL (83.0-99.0); MEAN PLATELET VOLUME 8.7 fL (9.4-12.4); MONOCYTES ABSOLUTE AUTO 0.61 K/uL (0.00-0.80); MONOCYTES PERCENT AUTO 8.4 % (0.0-8.0); NEUTROPHILS ABSOLUTE AUTO 5.03 K/uL (1.80-7.70); PLATELET COUNT,PLT 269 K/uL (150-400); RED BLOOD CELL COUNT 4.59 M/uL (4.52-5.90); WHITE BLOOD CELL COUNT,WBC 7.29 K/uL (3.9-11.3)
[2023-02-11 07:54] LABS: ALBUMIN 3.9 g/dL (3.4-5.0); BILIRUBIN TOTAL 0.5 mg/dL (0.2-1.0); CALCIUM 9.2 mg/dL (8.5-10.1); CARBON DIOXIDE,CO2 25.4 mmol/L (21.0-32.0); CREATININE 1.2 mg/dL (0.8-1.3); EST CRCL DRUG DOSING (CG) 78.28 mL/min; POTASSIUM,K 3.5 mmol/L (3.5-5.1); PROTEIN TOTAL,TP 7.7 g/dL (6.4-8.2)
[2023-02-11] MEDS ORDERED: Iopamidol 755 MG/ML 500 ML Multipack Bottle IVPUSH STA (08:26)
[2023-02-11 09:34] VITALS: BP 132/71; PULSE 61
== END 2023-02-11 09:31 | disposition home or self-care (01) ==
LOC: MW.ED 06:46
DX: M54.6 Pain in thoracic spine (principal); M79.18 Myalgia, other site; Z88.5 Allergy status to narcotic agent
CPT/HCPCS: 36415; 71275; 80053; 84484; 85025; 85379; 93005; 96374; 96375; 99285; J2405; J3010; J3490; Q9967; 93010; 99284

== ENCOUNTER 2023-02-12 16:31 | Emergency (ER) | payer BC ==
[2023-02-12] MEDS ORDERED: Alum Hydro/Mag Hydro/Simeth XS 15 ML, Lidocaine 2% 5 ML PO STA ×2 (18:23)
[2023-02-12] MEDS ORDERED: Sodium Chloride 0.9% 10 ML Syringe FLUSH PRN (18:46)
[2023-02-12] MEDS ORDERED: Sodium Chloride 0.9% 2.5 ML Syringe FLUSH PRN (18:46)
[2023-02-12] MEDS ORDERED: Ondansetron 4 MG/2 ML SDV IVPUSH STA (18:51)
[2023-02-12] MEDS ORDERED: Morphine 4 MG/ML Syringe IVPUSH STA (18:51)
[2023-02-12 19:47] LABS: BASOPHILS ABSOLUTE AUTO 0.07 K/uL (0.00-0.20); BASOPHILS PERCENT AUTO 0.9 % (0.0-1.0); EOSINOPHILS ABSOLUTE AUTO 0.12 K/uL (0.00-0.45); EOSINOPHILS PERCENT AUTO 1.6 % (0.0-6.0); HEMATOCRIT 42.2 % (42.0-52.0); HEMOGLOBIN 14.7 g/dL (14.0-18.0); IMMATURE GRAN ABSOLUTE AUTO 0.02 K/uL (0.00-0.05); IMMATURE GRAN PERCENT AUTO 0.3 % (0.0-0.4); LYMPHOCYTES ABSOLUTE AUTO 1.52 K/uL (1.00-4.80); LYMPHOCYTES PERCENT AUTO 19.6 % (24.0-44.0); MEAN CORPUSCULAR HEMOGLOBIN 32.9 pg (28.0-32.0); MEAN CORPUSCULAR HGB CONC 34.8 g/dL (32.0-36.0); MEAN CORPUSCULAR VOLUME 94.4 fL (83.0-99.0); MEAN PLATELET VOLUME 9.1 fL (9.4-12.4); MONOCYTES ABSOLUTE AUTO 0.69 K/uL (0.00-0.80); MONOCYTES PERCENT AUTO 8.9 % (0.0-8.0); NEUTROPHILS ABSOLUTE AUTO 5.32 K/uL (1.80-7.70); NEUTROPHILS PERCENT AUTO 68.7 % (41.0-71.0); PLATELET COUNT,PLT 281 K/uL (150-400); RED BLOOD CELL COUNT 4.47 M/uL (4.52-5.90); WHITE BLOOD CELL COUNT,WBC 7.74 K/uL (3.9-11.3)
[2023-02-12 19:59] LABS: ALBUMIN 3.9 g/dL (3.4-5.0); BILIRUBIN TOTAL 0.3 mg/dL (0.2-1.0); CALCIUM 9.4 mg/dL (8.5-10.1); CARBON DIOXIDE,CO2 30.4 mmol/L (21.0-32.0); CREATININE 1.2 mg/dL (0.8-1.3); EST CRCL DRUG DOSING (CG) 74.34 mL/min; POTASSIUM,K 4.1 mmol/L (3.5-5.1); PROTEIN TOTAL,TP 7.8 g/dL (6.4-8.2)
[2023-02-12 20:02] LABS: MAGNESIUM 2.1 mg/dL (1.8-2.4)
[2023-02-12] MEDS ORDERED: Aspirin 81 MG Tab.Chew PO STA (21:15)
[2023-02-12] MEDS ORDERED: Enoxaparin 100 MG/1 ML Syringe SUBCUT STA (21:29)
[2023-02-13] MEDS ORDERED: Enoxaparin 100 MG/1 ML Syringe SUBCUT ONE (09:30)
[2023-02-13 10:44] VITALS: BP 127/73; PULSE 73
== END 2023-02-13 10:48 ==
LOC: MW.ED 16:31
DX: I21.4 Non-ST elevation (NSTEMI) myocardial infarction (principal); Z87.891 Personal history of nicotine dependence; Z79.899 Other long term (current) drug therapy; Z88.5 Allergy status to narcotic agent
CPT/HCPCS: 36415; 71046; 80053; 83690; 83735; 84484; 85025; 93005; 96372; 96374; 96375; 99285; A9270; J1650; J2270; J2405; J3490; 93010